=== PATIENT | female | born 1970 | race Two or more races ===

== ENCOUNTER → 2017-01-19 | Outpatient (CLI) | payer BC ==
--- NOTE | 2017-01-20 10:02 | MM ---
Reason for exam: screening (asymptomatic). Baseline mammogram. History: Took hormonal contraceptives for 10 years. Physical Findings: Nurse Summary: A 2 x 2cm cluster nodule in the left breast at 12 o'clock (nurse ts). MG Screening Mammo w CAD Bilateral CC and MLO view(s) were taken. The breast tissue is heterogeneously dense. This may lower the sensitivity of mammography. There is no discrete abnormality at BB. (cysts on ultrasound at BB) These results were verbally communicated with the patient and result sheet given to the patient on 01/19/17. ASSESSMENT: Benign, BI-RAD 2 RECOMMENDATION: Routine screening mammogram of both breasts in 1 year. Manage patient on a clinical basis.
--- NOTE | 2017-01-20 10:15 | USB ---
Reason for exam: additional evaluation requested from abnormal screening. History: Took hormonal contraceptives for 10 years. US Breast Workup Limited LT Left breast ultrasound indicates a 9 x 4 x 7mm oval, cystic lesion at 9 o'clock, a 43 x 16 x 30mm cystic cluster at BB, a 24mm oval lesion at 12 o'clock and a 11-12 o'clock lesion filled with cystic clusters, that correlates with mammographic findings. These results were verbally communicated with the patient and result sheet given to the patient on 01/19/17. ASSESSMENT: Benign, BI-RAD 2 RECOMMENDATION: Return to routine screening mammogram schedule for both breasts. Manage patient on a clinical basis.
== END | disposition home or self-care (01) ==
LOC: RADMAMWWP 13:24
PROVIDERS: ATTEND Family Medicine
DX: Z12.31 Encounter for screening mammogram for malignant neoplasm of breast (principal); R92.8 Other abnormal and inconclusive findings on diagnostic imaging of breast
CPT/HCPCS: 76642; G0202

== ENCOUNTER → 2020-08-14 | Outpatient (CLI) | payer BC ==
--- NOTE | 2020-08-14 10:21 | MM ---
Reason for exam: clinical finding. Last mammogram was performed 3 years and 7 months ago. History: Took hormonal contraceptives for 10 years. Physical Findings: Nurse Summary: 1.5cm nodule in the right breast at 10 o'clock (nurse charissa). MG 3D Diag Mammo W/Cad BRETT Bilateral CC and MLO view(s) were taken. Prior study comparison: January 19, 2017, bilateral MG screening mammo w CAD. The breast tissue is extremely dense which could obscure a lesion on mammography. Nodularity bilaterally increased in size, palpable. These results were verbally communicated with the patient and result sheet given to the patient on 08/14/20. ASSESSMENT: Incomplete: need additional imaging evaluation, BI-RAD 0 RECOMMENDATION: Ultrasound of both breasts.
--- NOTE | 2020-08-14 10:24 | USB ---
Reason for exam: additional evaluation requested from abnormal screening. History: Took hormonal contraceptives for 10 years. US Breast Limited BILAT Technologist: Sari Mccoy Right limited breast ultrasound including focal area of concern, retroareolar and axilla demonstrates a 2.2 x 1.7 x 1.7cm cystic lesion with internal debris at 9 o'clock, a 1.7 x 1.5 x 1.3cm cystic lesion at 10 o'clock and a 1.7 x 2.0 x 1.2cm cystic lesion with debris at 10 o'clock. Left limited breast ultrasound including focal area of concern, retroareolar and axilla demonstrates a 1.5 x 1.3 x 1.1cm cystic lesion with debris at 12 o'clock, a 0.9 x 1.1 x 0.5cm cystic cluster at 12 o'clock and a 0.6 x 0.9 x 0.5cm circular lesion at 3 o'clock probable debris filled cyst. Multiple cysts visualized, largest measured. These results were verbally communicated with the patient and result sheet given to the patient on 08/14/20. ASSESSMENT: Probably benign, BI-RAD 3 RECOMMENDATION: Ultrasound of the left breast in 6 months.
== END | disposition home or self-care (01) ==
LOC: RADMAMWWP 06:58
PROVIDERS: ATTEND Obstetrics & Gynecology Obstetrics
DX: N63.15 Unspecified lump in the right breast, overlapping quadrants (principal); N63.20 Unspecified lump in the left breast, unspecified quadrant; R92.8 Other abnormal and inconclusive findings on diagnostic imaging of breast
CPT/HCPCS: 77062; 77066

== ENCOUNTER → 2023-04-06 | Outpatient (CLI) | payer BC ==
--- NOTE | 2023-04-06 11:25 | P.SLEEP ---
History of Present Illness DATE: 04/06/2023 CONSULTATION/NEW PATIENT EVALUATION HISTORY OF PRESENT ILLNESS/SLEEP-WAKE EVALUATION: 52-year-old lady had been evaluated in the sleep center for possible obstructive sleep apnea hypopnea syndrome and significant excessive daytime sleepiness. SLEEP SCHEDULE: Usually sleep schedule from a 30 9 AM until 4 PM 7 days a week. Patient works at shift manager. FALLING ASLEEP: Sometimes patient has difficulties with falling asleep, has TV set and bedroom. DURING SLEEP: Patient usually sleeps on the back position with loud snoring and witnessed episodes of stop breathing during the sleep. Positive history of nightmares, twitching of he legs, grinding teeth, restless leg symptoms. No history of hypnogogical hallucinations, sleep paralysis, or cataplexy. DURING THE DAY/WAKE STATE: After sleep patient wake up tired, has problems with memory, irritability and episodes of depression. [place] sleepiness scale is in very high range of 19. [place] sleepiness scale is patient may take up to 23 naps. PAST MEDICAL HISTORY: Hyperlipidemia. PAST SURGICAL HISTORY: None. MEDICATIONS: Atorvastatin 20 mg once a day. SOCIAL HISTORY: Except on 2 cigarettes a day socially, alcohol consumption occasional. FAMILY HISTORY: Hypertension, diabetes. REVIEW OF SYSTEMS: Loud snoring, witnessed episodes of stop breathing during the sleep, sleepiness. No fevers. No double vision. No recent chest pain. No shortness of breath. No abdominal pain. No bleeding episodes. No blood in urine. No seizure episodes. PHYSICAL EXAMINATION: GENERAL: A pleasant patient without any distress. VITAL SIGNS: BP 106/72 , HR 75 , RR 12 , weight 144.8 pounds, height 5 foot 3 inches, body mass index 25.5 . HEENT: PERRLA, EOMI. Evaluation of oropharynx showed tongue protrudes midline, low position of soft palate Mallampati 2 but wide pillars and short distance between soft palate and posterior pharyngeal wall, . NECK: Supple. No JVD. Thyroid is not palpable. 14 inches in circumference. LUNGS: Clear to percussion and to auscultation. Good air exchange. No wheezing or rhonchi. HEART: S1, S2 regular. No murmurs, gallops or rubs. ABDOMEN: Soft and nontender. Bowel sounds are present. No organomegaly appreciated. EXTREMITIES: No clubbing or cyanosis. ELECTRICAL EQUIPMENT TESTER: Awake, alert, and oriented x3. Cranial nerves 2 to 7 intact. There is no fasciculation or atrophy noted. No focal deficits observed. ASSESSMENT: 1. Loud snoring, witnessed episodes of stop breathing during the sleep, short distance between soft palate and posterior pharyngeal wall, sleepiness during the day. Obstructive sleep apnea hypopnea syndrome. 2. Significant excessive sleepiness with Gladstone Sleepiness Scale of 19 dictated necessity to include hypersomnia and narcolepsy type II without cataplexy and differential diagnosis. 3. shift supervisor rn worker. 4. Significant amount of teaching legs during the night, periodic limb movements. 5. Restless leg symptoms 6 . Hyperlipidemia. PLAN: 1. Home sleep apnea test for evaluation of patient's breathing during sleep. If sleep apnea test has been negative for obstructive sleep apnea hypopnea syndrome patient will need multiple sleep latency test for objective evaluation symptoms of sleepiness 2. CPAP/BiPAP titration if sleep study confirms obstructive sleep apnea- hypopnea syndrome. 3. Preferable position during sleep on the side. 4. No driving if patient feels any sleepiness. Patient is aware of civil and criminal liability for unsafe driving. 5. Sleep hygiene with regular sleep time for at least 7.5-8 hours. 6. Watching weight. Thank you very much for referring this patient for consultation. Sincerely, Devang Mueller MD, PhD, FAASM. Diplomat of [place] [employer], Sleep Medicine Board by [place] [employer] [place] [employer] of [facility] [place] Past Medical History Past Medical History: No Reported History History of Any Multi-Drug Resistant Organisms: None Reported Past Surgical History: No Surgical Hx Reported Past Psychological History: Depression Past Alcohol Use History: Occasional Past Drug Use History: None Reported Medications and Allergies Home Medications Medication Instructions Recorded Confirmed Type Hydrocodone/Acetaminophen [[place] 1 each PO Q6HR PRN #10 tab 10/03/15 11/20/15 Rx 5-325] Ondansetron Odt [Zofran ODT] 4 mg PO Q8HR PRN #5 tab 10/03/15 11/20/15 Rx Sertraline HCl 1 tab PO HS 10/03/15 11/20/15 History Ibuprofen 800 mg PO TID PRN 11/20/15 11/20/15 History Allergies Allergy/AdvReac Type Severity Reaction Status Date / Time No Known Allergies Allergy Verified 10/03/15 15:40 Sleep Note - Sleep Note Sleep Note: Temperature: Pulse Rate: Respiratory Rate: Blood Pressure: SpO2: Height: Weight: BMI: Neck Circumference:
--- NOTE | 2023-04-06 12:11 | P.SLEEP ---
History of Present Illness DATE: 04/06/2023 CONSULTATION/NEW PATIENT EVALUATION HISTORY OF PRESENT ILLNESS/SLEEP-WAKE EVALUATION: 49-year-old gentleman had been evaluated in the sleep center for possible obstructive sleep apnea hypopnea syndrome. SLEEP SCHEDULE: Usually sleep schedule from 11 AM to 4 PM on weekdays and from 8 PM to 4 AM on weekend. Patient is working at dog hair clipper. FALLING ASLEEP: Sometimes patient has problems with falling asleep. DURING SLEEP: Patient has loud snoring and witnessed episodes of stop breathing during the sleep by his . He wakes up from sleep with nocturia up to 3 times No history of hypnogogical hallucinations, sleep paralysis, or cataplexy. DURING THE DAY/WAKE STATE: During the day patient has difficulties to concentrate. [place] sleepiness scale is 4. Usually patient doesn't take any additional naps. PAST MEDICAL HISTORY: Hyperlipidemia, migraines. PAST SURGICAL HISTORY: Left shoulder surgery, vasectomy. MEDICATIONS: Atorvastatin 20 mg once a day, Tamsulosin 0.4 mg once a day. SOCIAL HISTORY Positive history of smoking for about 25 years presently half pack a day, no alcohol consumption at the present time. FAMILY HISTORY Liver problems, diabetes. REVIEW OF SYSTEMS: Loud snoring, multiple awakenings from sleep with nocturia. No fevers. No double vision. No recent chest pain. No shortness of breath. No abdominal pain. No bleeding episodes. No blood in urine. No seizure episodes. PHYSICAL EXAMINATION: GENERAL: A pleasant patient without any distress. VITAL SIGNS: BP 125/82 , HR 76 , RR 12 , weight 230.8 pounds, height 5 foot 9 inches, body mass index 33.9 . HEENT: PERRLA, EOMI. Evaluation of oropharynx showed tongue protrudes midline, low position of soft palate Mallampati 4. NECK: Supple. No JVD. Thyroid is not palpable. 17 inches in circumference. LUNGS: Clear to percussion and to auscultation. Good air exchange. No wheezing or rhonchi. HEART: S1, S2 regular. No murmurs, gallops or rubs. ABDOMEN: Soft and nontender. Bowel sounds are present. No organomegaly appreciated. EXTREMITIES: No clubbing or cyanosis. MANAGING CONSULTANT: Awake, alert, and oriented x3. Cranial nerves 2 to 7 intact. There is no fasciculation or atrophy noted. No focal deficits observed. ASSESSMENT: 1. Loud snoring, witnessed episodes of stop breathing during the sleep, extremely low position of soft palate Mallampati 4, wide neck 17 inches in circumference. Obstructive sleep apnea-hypopnea syndrome. 2. Mild obesity body mass index 33.9. 3. Hyperlipidemia. 4. BPH. 5 History of migraines. 6 . Status post left shoulder surgery. 7. Status post vasectomy. PLAN: 1. Home sleep apnea test for evaluation of patient's breathing during sleep. 2. CPAP/BiPAP titration if sleep study confirms obstructive sleep apnea- hypopnea syndrome. 3. Preferable position during sleep on the side. 4. No driving if patient feels any sleepiness. Patient is aware of civil and criminal liability for unsafe driving. 5. Sleep hygiene with regular sleep time for at least 7.5-8 hours. 6. Watching and losing weight. Thank you very much for referring this patient for consultation. Sincerely, Devang Mueller MD, PhD, FAASM. Diplomat of [place] [employer], Sleep Medicine Board by [place] [employer] [place] [employer] Certified Corporate Travel Executive of [facility] [place] Past Medical History Past Medical History: No Reported History History of Any Multi-Drug Resistant Organisms: None Reported Past Surgical History: No Surgical Hx Reported Past Psychological History: Depression Past Alcohol Use History: Occasional Past Drug Use History: None Reported Medications and Allergies Home Medications Medication Instructions Recorded Confirmed Type Hydrocodone/Acetaminophen [[place] 1 each PO Q6HR PRN #10 tab 10/03/15 11/20/15 Rx 5-325] Ondansetron Odt [Zofran ODT] 4 mg PO Q8HR PRN #5 tab 10/03/15 11/20/15 Rx Sertraline HCl 1 tab PO HS 10/03/15 11/20/15 History Ibuprofen 800 mg PO TID PRN 11/20/15 11/20/15 History Allergies Allergy/AdvReac Type Severity Reaction Status Date / Time No Known Allergies Allergy Verified 10/03/15 15:40
== END ==
LOC: 3 N SLEEP 10:14
PROVIDERS: ATTEND Internal Medicine
DX: G47.33 Obstructive sleep apnea (adult) (pediatric) (principal); G47.419 Narcolepsy without cataplexy; G25.81 Restless legs syndrome; E78.5 Hyperlipidemia, unspecified; G47.61 Periodic limb movement disorder; F17.200 Nicotine dependence, unspecified, uncomplicated
CPT/HCPCS: 99211

== ENCOUNTER → 2023-05-06 | Outpatient (CLI) | payer BC | LOC: 3 N SLEEP 11:15 | PROVIDERS: ATTEND Internal Medicine | DX: G47.33 Obstructive sleep apnea (adult) (pediatric) (principal) ==

== ENCOUNTER → 2024-07-06 | Outpatient (CLI) | payer BC ==
--- NOTE | 2024-07-09 12:24 | MM ---
Reason for Exam: Screening (asymptomatic). Last mammogram was performed 3 year(s) and 11 month(s) ago. Patient History: Menarche at age 14. First Full-Term at age 18. Patient has history of breast feeding. Patient used Hormonal Contraceptives for 10 years. Risk Values: Tabby 5 year model risk: 0.7%. NCI Lifetime model risk: 5.6%. Prior Study Comparison: 01/19/2017 Bilateral Screening Mammogram, [facility]. 08/14/2020 Bilateral Diagnostic Mammogram, [facility]. Tissue Density: The breasts are extremely dense, which lowers the sensitivity of mammography. Findings: Analyzed By CAD. Right breast: There is no suspicious group of microcalcifications or new suspicious mass. Left breast: There is no suspicious group of microcalcifications or new suspicious mass. Overall Assessment: Negative, BI-RAD 1 Management: Screening Mammogram of both breasts in [address] [facility] will attempt to contact patient to return for supplemental views and ultrasound if indicated. Patient should continue monthly self-breast exams. A clinical breast exam by your physician is recommended on an annual basis. This exam should not preclude additional follow-up of suspicious palpable abnormalities. Note on Tabby scores and lifetime risk: 1. A Tabby score greater than 3% is considered moderate risk. If this is the case, consider specialist referral to assess eligibility for a risk reducing agent. 2. If overall lifetime risk for the development of breast cancer is 20% or higher, the patient may qualify for future screening with alternating mammogram and breast MRI. [facility], , 07/09/2024 12:21 PM. Electronically signed and approved by: Jerry Foster DO
== END | disposition home or self-care (01) ==
LOC: RADMAMWWP 12:56
PROVIDERS: ATTEND Family Medicine
DX: Z12.31 Encounter for screening mammogram for malignant neoplasm of breast (principal); R92.343 Mammographic extreme density, bilateral breasts
CPT/HCPCS: 77063; 77067